=== PATIENT | male | born 1950 | race Two or more races ===

== ENCOUNTER 2017-12-25 20:37 | Emergency (ER) | payer OTHER ==
[~2017-12-25] VITALS: Ht 170.2 cm; Wt 106.6 kg
[2017-12-25] MEDS ORDERED: GLUCOPHAGE XR750 MG (21:26)
[2017-12-25] MEDS ORDERED: SILVASTATIN (21:28)
[2017-12-25] MEDS ORDERED: PNEU16DI2 ×2 (21:28→21:29)
[2017-12-25] MEDS ORDERED: AMIPRIL (21:29)
== END 2017-12-25 22:53 | disposition home or self-care (01) ==
LOC: ER 20:37
DX: B34.9 Viral infection, unspecified (principal)